=== PATIENT | male | born 1985 | race Caucasian/White ===

== ENCOUNTER 2018-01-06 21:16 | Emergency (ER) | payer OTHER ==
[2018-01-07] MEDS ORDERED: Amoxicillin PO (*) 250 MG CAP PO ONE (00:39)
--- NOTE | 2018-01-07 00:39 | ED ---
Throat Pain/Nasal Congestion - HPI Summary HPI Summary: Complains of sore throat starting yesterday. Son was recently diagnosed with strep. Denies fever, cough, ear pain, STOVALL, neck stiffness, CP, SOB, N/V/D, abdomen pain, change in urine or BM. Medical history is none. - History of Current Complaint Chief Complaint: EDGeneral Time Seen by Provider: 01/06/18 23:13 Hx Obtained From: Patient Onset/Duration: Gradual Onset, Lasting Hours Severity: Mild Associated Signs And Symptoms: Positive: Negative Cough: None - Allergies/Home Medications Allergies/Adverse Reactions: Allergies Allergy/AdvReac Type Severity Reaction Status Date / Time MS Sulfa Antibiotics Allergy Unknown Verified 07/17/14 21:23 [Sulfa Antibiotics] Reaction Details Sulfa (Sulfonamide Allergy Unknown Verified 01/06/18 21:53 Antibiotics) Reaction Details PMH/Surg Hx/FS Hx/Imm Hx Previously Healthy: Yes Endocrine/Hematology History: Denies: Hx Anticoagulant Therapy Cardiovascular History: Denies: Hx Cardiac Arrest Respiratory History: Denies: Hx Lung Cancer History: Denies: Hx Dialysis Sensory History: Denies: Hx Cataracts EENT History: Denies: Hx Deafness Neurological History: Denies: Hx CVA Infectious Disease History: No Infectious Disease History: Denies: Traveled Outside the [place] in Last 30 Days - Social History Alcohol Use: Rare Substance Use Type: Reports: None Smoking Status (MU): Never Smoked Tobacco Review of Systems Constitutional: Negative Eyes: Negative Positive: Sore Throat Cardiovascular: Negative Respiratory: Negative Gastrointestinal: Negative Genitourinary: Negative Musculoskeletal: Negative Skin: Negative Neurological: Negative Psychological: Normal All Other Systems Reviewed And Are Negative: Yes Physical Exam Triage Information Reviewed: Yes Vital Signs On Initial Exam: Initial Vitals Temp Pulse Resp BP Pulse Ox 98.2 F 60 16 122/77 99 01/06/18 21:51 01/06/18 21:51 01/06/18 21:51 01/06/18 21:51 01/06/18 21:51 Vital Signs Reviewed: Yes Appearance: Positive: Well-Appearing Skin: Positive: Warm Head/Face: Positive: Normal Head/Face Inspection Eyes: Positive: Normal ENT: Positive: Pharyngeal erythema, TMs normal, Uvula midline. Negative: Tonsillar swelling, Tonsillar exudate, Trismus, Muffled voice, Hoarse voice Neck: Positive: Supple Respiratory/Lung Sounds: Positive: Clear to Auscultation Cardiovascular: Positive: Normal Abdomen Description: Positive: Nontender Musculoskeletal: Positive: Normal Neurological: Positive: Normal Psychiatric: Positive: Normal AVPU Assessment: Alert - [place] Coma Scale Best Eye Response: 4 - Spontaneous Best Motor Response: 6 - Obeys Commands Best Verbal Response: 5 - Oriented Coma Scale Total: 15 Diagnostics - Vital Signs Vital Signs Temp Pulse Resp BP Pulse Ox 01/06/18 21:51 98.2 F 60 16 122/77 99 - Laboratory Lab Results: Lab Results 01/06/18 Range/Units 23:21 Group A Strep Rapid Negative (Negative) Lab Statement: Any lab studies that have been ordered have been reviewed, and results considered in the medical decision making process. EENT Course/Dx - Course Course Of Treatment: Complains of sore throat starting yesterday. Son was recently diagnosed with strep. Denies fever, cough, ear pain, STOVALL, neck stiffness, CP, SOB, N/V/D, abdomen pain, change in urine or BM. Medical history is none. Strep negative. Patient taking trip to [facility] tomorrow. Rx for amoxicillin to cover for possible false-negative. - Diagnoses Provider Diagnoses: Pharyngitis Discharge - Sign-Out/Discharge Documenting (check all that apply): Discharge/Admit/Transfer - Discharge Plan Condition: Stable Disposition: HOME Prescriptions: Amoxicillin 500 mg PO BID 10 Days #20 capsule Patient Education Materials: Pharyngitis (ED) Referrals: Gerald Byrd MD [Primary Care Provider] - Additional Instructions: Take antibiotics as directed. Follow-up with primary care. - Billing Disposition and Condition Condition: STABLE Disposition: Home
[2018-01-07 01:15] VITALS: BP 117/89
== END 2018-01-07 01:10 | disposition home or self-care (01) ==
LOC: ED 21:16
DX: J02.9 Acute pharyngitis, unspecified (principal); Z88.1 Allergy status to other antibiotic agents
CPT/HCPCS: 87651; 99282; A9270-GY

== ENCOUNTER 2019-09-26 07:53 | Emergency (ER) | payer OTHER ==
[2019-09-26 08:07] VITALS: BP 136/80
--- NOTE | 2019-09-26 08:31 | UC ---
UC General HPI - HPI Summary HPI Summary: 4 days of sore throat. No cough, Low grade temp: Tmax 100. +congestion. Decrease appetite. no n/V/D. +sick contacts Meds; reviewed - History of Current Complaint Chief Complaint: UCGeneralIllness Stated Complaint: SORE THROAT Time Seen by Provider: 09/26/19 08:21 Pain Intensity: 6 - Allergy/Home Medications Allergies/Adverse Reactions: Allergies Allergy/AdvReac Type Severity Reaction Status Date / Time Sulfa (Sulfonamide Allergy Unknown Verified 01/06/18 21:53 Antibiotics) Reaction Details Home Medications: Home Medications Amoxicillin PO (*) [Amoxicillin 500 MG CAP*] 500 mg PO Q12H #20 cap 09/26/19 [Rx ] PMH/Surg Hx/FS Hx/Imm Hx Previously Healthy: Yes Other History Of: Negative For: Anticoagulant Therapy - Surgical History Surgical History: None - Social History Alcohol Use: None Substance Use Type: None Smoking Status (MU): Never Smoked Tobacco Review of Systems All Other Systems Reviewed And Are Negative: Yes Constitutional: Positive: Fever ENT: Positive: Sore Throat Physical Exam Triage Information Reviewed: Yes Appearance: Well-Appearing Vital Signs: Initial Vital Signs Temp 98.6 F 09/26/19 08:01 Pulse 80 09/26/19 08:01 Resp 18 09/26/19 08:01 BP 136/80 09/26/19 08:01 Pulse Ox 96 09/26/19 08:01 Vital Signs Reviewed: Yes Eyes: Positive: Conjunctiva Clear ENT: Positive: Pharyngeal erythema, TMs normal, Tonsillar swelling Neck: Positive: Supple, Enlarged Nodes @ - anterior cervical chain Respiratory: Positive: Lungs clear, Normal breath sounds Cardiovascular: Positive: RRR, No Murmur Course/Dx - Course Course Of Treatment: This is a 33 yr old with a sore throat Rapid strep positive Plan Your rapid strep was positive for strep throat Recommend starting Amoxicillin 2x/day for 10 days Continue to drink plenty of fluids, reset and ibuprofen as needed for pain - take as directed If symptoms persist or worsen, recommend follow up with PCP or return to urgent care - Diagnoses Provider Diagnosis: Strep throat Discharge ED - Sign-Out/Discharge Documenting (check all that apply): Patient Departure All imaging exams completed and their final reports reviewed: No Studies - Discharge Plan Condition: Good Disposition: HOME Prescriptions: Amoxicillin PO (*) [Amoxicillin 500 MG CAP*] 500 mg PO Q12H #20 cap Patient Education Materials: Strep Throat (ED) Forms: *Work Release Referrals: [facility] [Outside] No Primary Care Phys,NOPCP [Primary Care Provider] - Additional Instructions: Your rapid strep was positive for strep throat Recommend starting Amoxicillin 2x/day for 10 days Continue to drink plenty of fluids, reset and ibuprofen as needed for pain - take as directed If symptoms persist or worsen, recommend follow up with PCP or return to urgent care - Billing Disposition and Condition Condition: GOOD Disposition: Home
== END 2019-09-26 08:50 | disposition home or self-care (01) ==
LOC: UCEAST 07:53
DX: J02.0 Streptococcal pharyngitis (principal); Z88.2 Allergy status to sulfonamides
CPT/HCPCS: 87651; 99212; G0463